=== PATIENT | female | born 1980 ===

== ENCOUNTER → 2018-04-16 | Day surgery (SDC) | payer OTHER ==
[2018-04-05 09:27] VITALS: BMI 21.2
[~2018-04-16] MED LIST: HYDROmorphone 0.5 mg/0.5 ml ISec IVP PRN; Lactated Ringer's 1,000 ML IV SCH; Propofol 10 mg/ml Inj (20 ML) ONE; ceFAZolin IV 1 gm in Dextrose 1 GM/50 ML BAG IVPB ONE
[2018-04-16 08:36] VITALS: RESP 18
--- NOTE | 2018-04-16 10:28 | PCM.OP ---
Operative Report - Operative Report Date of Surgery/Procedure: 04/16/18 Time of Surgery/Procedure: 10:26 Surgeon: Dr. Johnson Smasher: Non Anesthesia/Sedation: General LMA Pre-Operative Diagnosis: 38 yo with HGSIL/ KENNETH 2-3, iRREGULAR MENTRUAL CYCLE Post-Operative Diagnosis: sAME ABOOVE Indication for Surgery: HGSIL/ KENNETH II-III, Irregular menstrual cycle Operative Findings: AV uterus 8 wks Procedure/Operation Description: LEEP/ECC, Fractional D and C Estimated Blood Loss: 5 cc Blood Replaced: None Sponge/Instrument Count: Correct x2 Drains: None Complications: None Specimen: Cervix, ECC, EMC Discharge & Condition: Stable
[2018-04-16 12:07] VITALS: O2SAT 99
[2018-04-16 12:51] VITALS: BP 104/56; PULSE 80; TEMP 97.7
--- NOTE | 2018-04-17 06:24 | OP ---
PROCEDURE DATE: 04/16/2018 PREOPERATIVE DIAGNOSIS: A 38-year-old female with high-grade cervical dysplasia, cervical intraepithelial neoplasia 2 and 3. POSTOPERATIVE DIAGNOSIS: A 38-year-old female with high grade cervical dysplasia, cervical intraepithelial neoplasia 2 and 3. PROCEDURES: Loop electrosurgical excision procedure, endocervical curettage, and a fractional dilation and curettage. SURGEON: Pippa Johnson MD. ANESTHESIOLOGIST: Dr. Petit. TYPE OF ANESTHESIA: General LMA. FINDINGS: An anteverted uterus approximately 8 weeks' gestation. IV FLUIDS: 500 mL. ESTIMATED BLOOD LOSS: 5 mL. COMPLICATIONS: None. SPECIMEN: Cervix, ECC and EMC. DESCRIPTION OF PROCEDURE: The patient was informed of the risk factors, benefits, and alternatives of the procedure. Risk factors included stenotic os, infection, bleeding, damage to the surrounding organ and tissue, complication from anesthesia, and possible . All questions were answered and informed consent was obtained. Once the informed consent was obtained, she was then taken to the operating room, prepped and draped in normal sterile fashion, placed in dorsal lithotomy position. A weighted speculum was placed into the vagina and the anterior lip of the cervix was grasped using a single-tooth tenaculum. The uterus was gently sounded to approximately 8 cm. In that particular instance, Hanks dilator was utilized in order to dilate the uterus and a fractional D and C was then performed. At this particular time, then a triangle LEEP device was utilized to remove the cervix, in which the cervix was removed. Endocervical curetting was performed. Excellent hemostasis. Submitted to Pathology. Upon completion, the ball cautery was utilized in order to secure hemostasis. Once that was secure, Monsel was applied to the cervix. In that particular instance, all instruments were removed from the vagina. Instruments and lap count were correct x2. The patient was then taken to recovery room in stable condition and instructed to follow up in the office in approximately 2 weeks. Pippa Johnson MD
== END | disposition home or self-care (01) ==
LOC: C.SDS 08:15
PROVIDERS: ATTEND Obstetrics & Gynecology
DX: N87.1 Moderate cervical dysplasia (principal); N92.6 Irregular menstruation, unspecified
CPT/HCPCS: 57522; 88305; J0690; J1170; J2405; J2704